=== PATIENT | male | born 1975 | race Caucasian/White ===

== ENCOUNTER → 2017-06-05 | Outpatient (CLI) | payer OTHER | LOC: BMCIMAGING 10:30 | PROVIDERS: ATTEND Family Medicine | DX: S82.832A Other fracture of upper and lower end of left fibula, initial encounter for closed fracture (principal) ==

== ENCOUNTER → 2017-08-24 | Outpatient (CLI) | payer OTHER | LOC: BMCIMAGING 14:41 | PROVIDERS: ATTEND Podiatrist Foot & Ankle Surgery | DX: S82.822D Torus fracture of lower end of left fibula, subsequent encounter for fracture with routine healing (principal) ==